=== PATIENT | female | born 1955 | race Caucasian/White ===

== ENCOUNTER 2017-07-26 05:17 | Inpatient (IN) ==
[2017-07-26 05:47] VITALS: BMI 24.0
[2017-07-26] MEDS ORDERED: ACETAMINOPHEN 500 MG TABLET PO ONE (06:00)
[2017-07-26] MEDS ORDERED: TRANEXAMIC ACID 1,000 MG in NS 100 ML IV ONE ×2 (06:00→07:00)
[2017-07-26] MEDS ORDERED: LIDOCAINE 1% (10mg/ml) 2mL INJ PF SDV ID ONE (06:00)
[2017-07-26] MEDS ORDERED: NOZIN NASAL SWAB NAS ONE ×2 (06:00→10:11)
[2017-07-26] MEDS ORDERED: ONDANSETRON 4 MG/2 ML INJECTION IVP ONE (06:00)
[2017-07-26] MEDS ORDERED: FAMOTIDINE PB 20 MG/50 ML BAG IV ONE (06:00)
[2017-07-26] MEDS ORDERED: METOCLOPRAMIDE 10mg/2ml INJECTION IVP ONE (06:00)
[2017-07-26] MEDS: LR 1,000 ML IV SCH ×2 (06:19→07:50)
[2017-07-26] MEDS ORDERED: CEFAZOLIN 1 G INJECTION IVP ONE (06:20)
--- NOTE | 2017-07-26 06:47 | Anesthesia Preoperative Report ---
Anesthesia Preoperative Record - Date and Time Date: 07/26/17 Preoperative Diagnosis: Lt TKA M17.12 Proposed Procedure: left total knee NPO Since Date: 07/25/17 NPO Since Time: 23:00 Allergies/Adverse Reactions: Allergies Allergy/AdvReac Type Severity Reaction Status Date / Time Sulfa (Sulfonamide Allergy Mild Rash Verified 07/26/17 05:57 Antibiotics) - Vital Signs Vital Signs: Temperature 98.4 F 07/26/17 05:47 Pulse Rate 80 07/26/17 06:04 Respiratory Rate 15 07/26/17 05:47 Blood Pressure 132/73 07/26/17 05:47 Pulse Oximetry 95 07/26/17 05:47 Height and Weight: Height 1.66 m Weight 66.6 kg Body Mass Index 24.0 - Medications Inpatient Medications: Current Medications Lactated Ringer's (Lactated Ringers) 1,000 mls @ 50 mls/hr IV .Q20H KIRA Last Admin: 07/26/17 06:19 Dose: 50 mls/hr Epinephrine HCl 0.25 mg/Bupivacaine HCl 30 ml/Morphine Sulfate 15 mg/Ketorolac Tromethamine 60 mg/Sodium Chloride 65.25 mls @ 0 mls/hr OPSITE INTRAOP ONE; Per Protocol PRN Reason: Protocol Stop: 07/26/17 08:01 Tranexamic Acid 1,000 mg/ (Sodium Chloride) 110 mls @ 660 mls/hr IV INTRAOP ONE Stop: 07/26/17 07:09 Sodium Chloride (Iv Flush) 10 - 80 ml IV PRN PRN PRN Reason: [place] Home Medications: Home Medications Medication Instructions Recorded Confirmed Type Tramadol HCl 100 mg PO Q8HPRN PRN #0 03/25/14 07/26/17 History Methocarbamol 750 mg PO DAILY PRN #0 11/01/15 07/26/17 History Simvastatin 80 mg PO HS #0 11/01/15 07/26/17 History Biotin 800 mcg PO DAILY 05/26/17 07/26/17 History Calcium Carbonate/Vitamin D3 1 tab PO BID 05/26/17 07/26/17 History [Calcium 500+D Tablet Chew] Duloxetine [Cymbalta] 60 mg PO BID 05/26/17 07/26/17 History Levothyroxine Sodium [Levoxyl] 100 mcg PO DAILY 05/26/17 07/26/17 History Metformin [Glucophage] 1,000 mg PO BID 05/26/17 07/26/17 History Nicotine Polacrilex [Nicotine 4 mg BC PRN PRN 05/26/17 07/26/17 History Lozenge] Triamterene/Hctz 37.5/25 Tab 1 tab PO NOON 05/26/17 07/26/17 History [MAXZIDE-25 eqv] Valsartan [Diovan] 1 tab PO DAILY 05/26/17 07/26/17 History Vitamin B Complex [Balanced B-100] 1 each PO DAILY 05/26/17 07/26/17 History Is Patient on Beta Sosa?: No - Medical History Respiratory: Reports: Bronchitis DENIES: Asthma Cardiovascular: Reports: Hypertension, High Cholesterol DENIES: Angina Gastrointestional: Reports: Other (hx of elevated liver enzymes) Neuro/Musculoskeletal: Reports: HX.MS.OSAR, Back Problems (scoliosis;thoracic spondylosis and ddd), Cerebrovascular Accident (AT AGE 40 STILL HAS MILD LEFT- SIDED WEAKNESS), Depression, Muscle Weakness, Other (fibromyalgia; multiple fractures, ) Renal/Endocrine: Reports: Diabetes Mellitus Type 2 (avg bs at home 120-200), Thyroid Disease Other History: Reports: Other (anemia - idiopathic) - Surgical History HEENT Surgeries: Reports: Oral Surgery (wisdom tooth extraction), Tonsillectomy GI Surgery/Treatments: Reports: Colonoscopy, EGD Musculoskeletal Surgery/Tx: Reports: Orthopedic Surgery (ORIF Lt proximal humerus), Other (ORIF wrist; ORIF Lt ankle; remove RIGHT ankle hardware; bunionectomy) Hx Family Anesthesia Reaction: No History of Motion Sickness: No - Social History Smoking Status: Former smoker Hx Chewing Tobacco Use: No Second Hand Exposure: No Substance Use Type: does not use Alcohol Intake: current Alcohol Intake Frequency: a few times a week - Pertinent Findings Laboratory: CBC and BMP 07/26/17 05:53 07/26/17 05:53 BMP 07/26/17 05:53 Sodium 142 Potassium 4.2 Chloride 101 Carbon Dioxide 30 BUN 15.0 Creatinine 0.5 L Glucose 162 H Calcium 9.7 EKG: Sinus Rhythm - Physical Exam Respiratory Exam: Present: lungs clear, bilateral breath sounds equal Cardiovascular Exam: Present: regular rate and rhythm, no murmur - Airway Assessment Mallampati Score: II TMD: 3 Fingerbreadths Neck Extension: fair Teeth: upper dentures Overall Assessment: may be difficult intubation - ASA ASA Score: 3 - Plan Regional/Trunk Block: Spinal - Discussion Discussion: Discussed risks/options/alternatives of anesthesia and questions answered. Patient consents. Nursing pain assessment noted. Attestation Statement: Prior to the delivery of any anesthetic medication, I examined the patient, developed the plan, obtained the patient's consent and discussed the risk and benefits of the procedure with the patient/guardian.
[2017-07-26] MEDS ORDERED: FentaNYL 100 MCG/2 ML INJECTION ONE (06:58)
[2017-07-26] MEDS ORDERED: PROPOFOL 20 ML ONE ×2 (06:59→07:25)
[2017-07-26] MEDS ORDERED: KETAMINE 500 MG/10 ML INJECTION ONE (06:59)
[2017-07-26] MEDS ORDERED: MIDAZOLAM 2mg/2ml INJECTION ONE (06:59)
[2017-07-26] MEDS ORDERED: VANCOMYCIN 1,000 MG INJECTION ONE (07:02)
[2017-07-26] MEDS ORDERED: EPHEDRINE 50mg/ml INJECTION ONE (07:43)
[2017-07-26] MEDS ORDERED: ROPIVACAINE 0.5% (5mg/ml) 30ml INJ ONE (07:45)
[2017-07-26] MEDS ORDERED: EPINEPHrine PF 0.25 MG, BUPIVACAINE 0.25% PF 30 ML, MORPHINE SULFATE 15 MG, KETOROLAC I... OPSITE ONE (08:00)
[2017-07-26] MEDS ORDERED: HYDROMORPHONE 2 MG/ML INJECTION IVP PRN (08:28)
--- NOTE | 2017-07-26 08:53 | Operative Note ---
- Procedure Preoperative Diagnosis: Left knee primary degenerative joint disease Postoperative Diagnosis: Same as preoperative diagnosis. Surgeon: Robert Azul MD Wood Casket Maker: Jose A Carrington Complications: None. Anesthesia: Spinal. Estimated Blood Loss: See Anesthesia Record. Fluids: Please see Anesthesia Record. Description of Procedure: Mrs. Melara and her left knee were identified and marked in the preoperative holding area. She was brought back to the operating suite after a saphenous nerve block was placed in the preoperative holding area. Spinal anesthetic was administered and she was placed supine on the operating table. The left lower extremity was prepped and draped in my normal sterile fashion. Timeout was performed. The [employer] ([employer]) robot was used during the surgery. She had a correctable valgus deformity without flexion contracture. A standard anterior midline incision followed by medial parapatellar arthrotomy was performed. Anterior fat pad and meniscus were removed. The patella was resurfaced to a size 29. Tibial and femoral arrays were placed both within the original incision. Checkpoints were then placed both in the femur and the tibia. The bone was then registered with the [employer] ([employer]) robot. Osteophytes were removed and gaps were captured both 90 and 0 with correction. She easily correct with manipulation. Because she hyperextended by 3 I balanced with 17 mm gaps in extension and 18 mm gaps in flexion. The [employer] ([employer]) robotic arm was then used to assist with the bone cuts. Posterior osteophytes and remaining meniscus were removed. Trial components were placed. We used a 3 femur and a 3 tibia with a 11 mm spacer. She tracked well and was well balanced throughout range of motion. She went from 18 of valgus to 0. The leg was exsanguinated and the tourniquet inflated to 250 mmHg. The bone was prepared for cementing and components were cemented into place and allowed to cure in extension. The tourniquet was let down and hemostasis obtained with electrocautery. The knee was ranged one more time to ensure good stability, balance and patellar tracking. 1 g of TXA was allowed to sit in the wound for 5 minutes and then suctioned out. 1 g of vancomycin powder was then placed into the knee joint. The capsulotomy was then closed with #1 Vicryl. I then left my acquisitions assistant to close the subcutaneous tissue with 2-0 Vicryl. Running 4-0 Monocryl will be used in the subcuticular layer. Dermabond will be used on the skin followed by sterile dressing. After drapes are removed patient will be taken to recovery room under the care of anesthesia.
--- NOTE | 2017-07-26 09:02 | Anesthesia Postoperative Note ---
- Status Vital Signs: Temperature 98.4 F 07/26/17 05:47 Pulse Rate 80 07/26/17 06:04 Respiratory Rate 15 07/26/17 05:47 Blood Pressure 132/73 07/26/17 05:47 Pulse Oximetry 95 07/26/17 05:47 Complications During Recover: None Apparent - Follow-Up Instructions Instructions: Per Surgeon
--- NOTE | 2017-07-26 09:54 | Anesthesia Procedure Note ---
Peripheral Nerve Blockade - Procedure Physician: Kevin Azul MD Date: 07/26/17 Surgical Procedure: Left total knee Discussion: Discussed risks/options/alternatives of anesthesia and questions answered. Patient consents. Nursing pain assessment noted. Block Start: 09:47 Block Stop: 09:50 Blocked Employed: Adductor Canal Indication: Post-Operative Pain Approach: Left Side Confirmed Position: Supine Patient: Consent, Risks/Benefits Discussed, Informed, Post Block Act. Discussed IV Sedation: No Initial Vital Signs: Temperature 98.4 F 07/26/17 05:47 Temperature Source Oral 07/26/17 05:47 Pulse Rate 89 07/26/17 05:47 Respiratory Rate 15 07/26/17 05:47 Blood Pressure 132/73 07/26/17 05:47 Blood Pressure Mean 92 07/26/17 05:47 Blood Pressure Position Sitting 07/26/17 05:47 Pulse Oximetry 95 07/26/17 05:47 Oxygen Delivery Method 07/26/17 05:47 Post Vital Signs: Temperature 98.9 F 07/26/17 09:23 Pulse Rate 92 07/26/17 09:40 Respiratory Rate 19 07/26/17 09:40 Blood Pressure 96/58 07/26/17 09:40 Pulse Oximetry 98 07/26/17 09:40 Initial Pain Pain Score: 0 Post Block Pain Score: 0 Prep: Chlorhexadine/ETOH Ultrasound Used?: Yes - Injectate Ropivacaine (%): 0.5 Ropivacaine (mL): 15 Was Epi 1:200,000 Used?: No Injection: Injection made incrementally with constant monitoring and aspiration every ml
--- NOTE | 2017-07-26 10:02 | XRay Report ---
Indication: postoperative image PROCEDURE: XR knee LT 2V: Encounter: Initial Comparison: December 12, 2015 Findings: Postoperative changes of left total knee replacement are seen. There is expected postoperative subcutaneous gas. No evidence of hardware failure or acute fracture. No retained radiopaque surgical instruments or sponges. Overlying material causing artifact. Impression: New left total knee prosthesis without evidence of immediate complication. .
[2017-07-26] MEDS ORDERED: ONDANSETRON 4 MG/2 ML INJECTION IVP PRN (10:11)
[2017-07-26] MEDS ORDERED: DiphenhydrAMINE 25 MG CAPSULE PO PRN (10:11)
[2017-07-26] MEDS ORDERED: DiphenhydrAMINE 50 MG/ML INJECTION IVP PRN (10:11)
[2017-07-26] MEDS ORDERED: LORazepam 1 MG TABLET PO PRN (10:11)
[2017-07-26] MEDS ORDERED: METHOCARBAMOL 750 MG TABLET PO PRN (10:11)
[2017-07-26] MEDS ORDERED: FALL RISK - PHARMACY CONSULT MC ONE (10:31)
[2017-07-26] MEDS: NS 1,000 ML IV SCH ×2 (10:32→23:30)
[2017-07-26] MEDS: ACETAMINOPHEN 325 MG TABLET PO SCH ×4 (11:43→22:05)
[2017-07-26] MEDS: LEVOTHYROXINE 100 MCG TABLET PO SCH (11:44)
[2017-07-26] MEDS: Valsartan 160 MG TABLET PO SCH (12:03)
[2017-07-26] MEDS: POLYETHYL GLYCOL 3350 17gm PACKET PO SCH (12:03)
[2017-07-26] MEDS: TRIAMTERENE/HCTZ 37.5 MG-25 MG TABLET PO SCH (12:03)
[2017-07-26] MEDS: DULOXETINE 60 MG CAPSULE PO SCH ×2 (12:03→22:06)
[2017-07-26] MEDS: DOCUSATE SODIUM 100 MG CAPSULE PO SCH ×2 (12:04→22:06)
--- NOTE | 2017-07-26 12:17 | Anesthesia Postoperative Note ---
- Date and Time Date: 07/26/17 Time: 11:46 - Status Patient Participated in Evaluation: Patient Participated in Person Vital Signs: Temperature 98.4 F 07/26/17 10:10 Pulse Rate 99 07/26/17 10:55 Respiratory Rate 16 07/26/17 10:10 Blood Pressure 120/67 07/26/17 10:55 Pulse Oximetry 98 07/26/17 10:55 Respiratory Function: Airway Patent Cardiovascular Function: Regular Pulse EKG: Sinus Rhythm Mental Status: Alert and Oriented Pain Intensity: 22 Hydration: IV Infusing Complications During Recover: None Apparent - Follow-Up Instructions Instructions: Per Surgeon
[2017-07-26] MEDS: TRAMADOL 50 MG TABLET PO PRN ×2 (12:42→14:52)
[2017-07-26] MEDS: NOZIN NASAL SWAB NAS SCH ×2 (14:07→22:06)
[2017-07-26] MEDS: INSULIN ASPART 100unit/ml INJECTION SQ PRN ×2 (14:52→21:01)
[2017-07-26] MEDS: CEFAZOLIN 2 G in NS 100 ML IV SCH ×2 (15:03→23:30)
[2017-07-26] MEDS ORDERED: SALINE FLUSH 10ml SYRINGE IV PRN (20:44)
[2017-07-26] MEDS ORDERED: SENNOSIDES 8.6 MG TABLET PO SCH (21:00)
[2017-07-26] MEDS ORDERED: SIMVASTATIN 40 MG TABLET PO SCH (21:00)
[2017-07-26] MEDS: ASPIRIN *EC* 81 MG TABLET PO SCH (22:05)
[2017-07-26] MEDS: Oxycodone *IR* 5 MG TABLET PO PRN (23:38)
[2017-07-26 23:45] VITALS: O2SAT 96
[2017-07-27] MEDS: Oxycodone *IR* 5 MG TABLET PO PRN ×5 (03:58→13:36)
[2017-07-27] MEDS: NOZIN NASAL SWAB NAS SCH ×2 (06:22→13:37)
[2017-07-27] MEDS: INSULIN ASPART 100unit/ml INJECTION SQ PRN ×2 (06:33→10:43)
[2017-07-27] MEDS ORDERED: SENNOSIDES 8.6 MG TABLET PO PRN (07:17)
[2017-07-27] MEDS ORDERED: METFORMIN 1,000 MG TABLET PO SCH (08:00)
--- NOTE | 2017-07-27 08:43 | Orthopedic Progress Note ---
Date: Subjective/Severity of Illness: Ana is alert and knew me. Pain is well controlled. She has been mobile with good tolerance. Hgb dropped from 11.2 to 8.2 and was confirmed on a second draw. Denies feeling SOA, lightheaded or dizzy. Her HR has slowly been increasing. BP elevated, I&O not unusual. Denies abdominal pain. She was worked up for anemia earlier, including a colonoscopy, and was no source was identified. Orthopedic Objective PO Vital signs: Temperature 98.6 F 07/27/17 08:16 Pulse Rate 100 07/27/17 08:16 Respiratory Rate 20 07/27/17 08:16 Blood Pressure 125/69 07/27/17 08:16 Pulse Oximetry 96 07/27/17 08:16 Height and Weight: Height 5 ft 5.5 in Weight 174 lb 9.698 oz Body Mass Index 24.0 - Constitutional General Appearance: Present: alert, orientated x3, cooperative, no acute distress - Respiratory Exam Present: non-labored - Cardiovascular Exam Present: Regular Rate/Rhythm, pedal pulses intact Capillary Refill: < 2-3 Seconds - Abdominal Exam Present: soft. Absent: tenderness, distended - Extremities Exam Extremities: Present: pulses intact, normal capillary refill. Absent: calf tenderness - Knee Exam Knee Exam: Present: other (Minimal swelling in the joint and soft tissues.) - Surgical Site Incision: Mepilex dressing intact, no drainage - Integumentary Exam Present: pink, warm, dry - Neurological Exam Present: no deficits - Psychiatric Exam Present: alert, normal affect - Labs Result Diagrams: 07/27/17 07:31 07/27/17 04:33 Abnormal lab results 07/27/17 07/27/17 07/27/17 Range/Units 04:33 04:33 07:31 Hgb 8.2 L D 8.2 L (12-16) GM/DL Hct 26.2 L D (36-46) % Creatinine 0.4 L (0.7-1.2) MG/DL BUN/Creatinine Ratio 35 H (6-26) RATIO Glucose 173 H (65-110) MG/DL H & H 07/26/17 07/27/17 07/27/17 Range/Units 05:53 04:33 07:31 Hgb 11.2 L 8.2 L D 8.2 L (12-16) GM/DL Hct 35.6 L 26.2 L D (36-46) % Orthopedic Assessment and Plan (1) Primary osteoarthritis of left knee Status: Acute Assessment and Plan: L TKA 07/26/17 Mobilize with PT / OT. ASA, SCDs and early mobilization for DVT coverage. CM for discharge planning and needs. I will recheck a Hgb at noon to monitor hgb trends. - Anticoagulation Therapy Anticoagulation: ASA 81 mg PO BID x6 weeks Hospital Course Summary Disclaimer: The visit summary below is not to be considered part of the above Progress Note.
[2017-07-27] MEDS: POLYETHYL GLYCOL 3350 17gm PACKET PO SCH (10:01)
[2017-07-27] MEDS: Valsartan 160 MG TABLET PO SCH (10:02)
[2017-07-27] MEDS: ACETAMINOPHEN 325 MG TABLET PO SCH ×2 (10:04→13:36)
[2017-07-27] MEDS: DOCUSATE SODIUM 100 MG CAPSULE PO SCH (10:04)
[2017-07-27] MEDS: LEVOTHYROXINE 100 MCG TABLET PO SCH (10:06)
[2017-07-27] MEDS: ASPIRIN *EC* 81 MG TABLET PO SCH (10:06)
[2017-07-27] MEDS: DULOXETINE 60 MG CAPSULE PO SCH (10:06)
[2017-07-27 12:11] VITALS: BP 128/76; PULSE 98; RESP 18
[2017-07-27 12:16] VITALS: TEMP 98.7
--- NOTE | 2017-07-27 13:11 | Discharge Summary ---
Orthopedic Discharge Info Date of admission: 07/26/17 05:17 Primary care physician: Praneeth Cabrera MD Attending Physician: Kevin Azul MD Consults: 07/26/17 05:37 Consult to Anesthesiology [CONS] Routine Reason For Exam: Preoperative Assessment 07/26/17 10:11 Case Management Consult [CONS] Routine Reason For Exam: Discharge Planning DME-Walker [CONS] Routine Height: 5 ft 5.5 in Weight: 146 lb 13.246 oz Comment: change dressing in 2 weeks Total Joint Outpatient Therapy [CONS] Routine Comment: change dressing in 2 weeks - Discharge Diagnosis (1) Primary osteoarthritis of left knee Status: Acute - Procedures Procedures: Procedures Left Total knee replacement - Laboratory Result Diagrams: 07/27/17 11:56 07/27/17 04:33 Laboratory: Abnormal lab results 07/27/17 07/27/17 07/27/17 Range/Units 04:33 04:33 07:31 Hgb 8.2 L D 8.2 L (12-16) GM/DL Hct 26.2 L D (36-46) % Creatinine 0.4 L (0.7-1.2) MG/DL BUN/Creatinine Ratio 35 H (6-26) RATIO Glucose 173 H (65-110) MG/DL 07/27/17 Range/Units 11:56 Hgb 8.6 L (12-16) GM/DL Hct (36-46) % Creatinine (0.7-1.2) MG/DL BUN/Creatinine Ratio (6-26) RATIO Glucose (65-110) MG/DL H & H 07/26/17 07/27/17 07/27/17 Range/Units 05:53 04:33 07:31 Hgb 11.2 L 8.2 L D 8.2 L (12-16) GM/DL Hct 35.6 L 26.2 L D (36-46) % 07/27/17 Range/Units 11:56 Hgb 8.6 L (12-16) GM/DL Hct (36-46) % Orthopedic Discharge HPI - HPI Comments This patient was admitted for elective surgical tx of end stage degenerative joint disease that failed to respond to conservative treatment. Further details of this is found in the admission H&P. Orthopedic Hospital Course Hospital course: 07/27/17 13:09 After appropriate preoperative clearance and signing of operative consent, the patient was given IV antibiotics, according to orthopedic protocol. The patient was taken to the operating room and underwent elective joint arthroplasty. Following surgery, antibiotics were discontinued less than 24 hours according to joint protocol. Appropriate anticoagulants were initiated and SCDs added for DVT prevention. The dressing was clean, dry, and intact. Pain control was obtained via multimodal approach. Bowel motivation addressed with scheduled and PRN medications. Early mobilization was initiated through PT services. Discharge arrangements made by a collaborative effort between the patient and Case Management. Hgb was noted post op day one at 8.2. She was asymptomatic and vitals were stable throughout. Hgb was repeated at 8.6. She had a recent EGD and colonoscopy via PCP which showed no bleed. Plan on discharge was to repeat labs and followup with PCP in 1 week. Follow-up is scheduled in 2-3 weeks. Discharge instructions given by orthopedic providers and nursing staff at discharge. Discharge condition was good. Ongoing care required?: No - Postoperative Anemia patient received IVF, labs monitored daily, no intervention required, HGB drop- acceptable Discharge Plan - Med Rec/Dispo Referrals/Follow Up: Praneeth Cabrera MD [Family Provider] - 1 Week (1 week for follow up on anemia. (She was asymptomatic througout hospital stay).) Truv Instructions: [facility] [place] Postop Instructions Additional Instructions: THERAPY ON JULY 29 AT 1:00 PM AT [facility]. TAKE FOLDER OF COMPLETED PAPERWORK WITH YOU TO APPOINTMENT. Please draw a CBC on 08/01/17 and take/fax results to Dr. Cabrera's office to be available for a 1 week follow up appointment. Prescriptions: New Acetaminophen [Tylenol] 650 mg PO QID tablet Aspirin *EC* [Ecotrin] 81 mg PO BID #84 tab PEG 3350 17gm PACKET [Miralax] 17 gm PO DAILY packet Oxycodone *IR* [Roxicodone *Ir*] 5 - 15 mg PO Q6H PRN #60 tab PRN Reason: Pain Continue Methocarbamol 750 mg PO DAILY PRN #0 PRN Reason: Muscle Spasm Calcium Carbonate/Vitamin D3 [Calcium 500+D Tablet Chew] 1 tab PO BID Biotin 800 mcg PO DAILY Vitamin B Complex [Balanced B-100] 1 each PO DAILY Metformin [Glucophage] 1,000 mg PO BID Duloxetine [Cymbalta] 60 mg PO BID Levothyroxine Sodium [Levoxyl] 100 mcg PO DAILY Triamterene/Hctz 37.5/25 Tab [MAXZIDE-25 eqv] 1 tab PO NOON Nicotine Polacrilex [Nicotine Lozenge] 4 mg BC PRN PRN PRN Reason: Prn Orders Simvastatin 80 mg PO HS #0 Valsartan [Diovan] 1 tab PO DAILY Discontinued Tramadol HCl 100 mg PO Q8HPRN PRN #0 PRN Reason: PAIN - Disposition 01 Discharged Home, Self-Care - Dismissal Complete Discharge Instructions are:: Complete
[2017-07-27] MEDS: TRIAMTERENE/HCTZ 37.5 MG-25 MG TABLET PO SCH (13:36)
--- NOTE | 2017-07-27 13:51 | Orthopedic Progress Note ---
Date: Subjective/Severity of Illness: Ana is alert and oriented. Pain is well controlled. She has been mobile with good tolerance. Repeat Hgb is 8.6. Denies feeling SOA, lightheaded or dizzy. Her HR has been stable, only one reading about 100. BP WNL this afternoon. I&O not unusual. Denies abdominal pain. She was worked up for anemia earlier, including a colonoscopy, and was no source was identified. Orthopedic Objective PO Vital signs: Temperature 98.7 F 07/27/17 12:08 Pulse Rate 98 07/27/17 12:08 Respiratory Rate 18 07/27/17 12:08 Blood Pressure 128/76 07/27/17 12:08 Pulse Oximetry 96 07/27/17 12:08 Height and Weight: Height 5 ft 5.5 in Weight 174 lb 9.698 oz Body Mass Index 24.0 - Constitutional General Appearance: Present: alert, orientated x3, cooperative, no acute distress - Respiratory Exam Present: non-labored - Cardiovascular Exam Present: Regular Rate/Rhythm, pedal pulses intact - Abdominal Exam Present: soft. Absent: tenderness, distended - Extremities Exam Extremities: Present: pulses intact, normal capillary refill. Absent: calf tenderness - Knee Exam Knee Exam: Present: other (Minimal swelling in the joint and soft tissues.) - Surgical Site Incision: Mepilex dressing intact, no drainage - Integumentary Exam Present: pink, warm, dry - Neurological Exam Present: no deficits - Psychiatric Exam Present: alert, normal affect - Labs Result Diagrams: 07/27/17 11:56 07/27/17 04:33 Abnormal lab results 07/27/17 07/27/17 07/27/17 Range/Units 04:33 04:33 07:31 Hgb 8.2 L D 8.2 L (12-16) GM/DL Hct 26.2 L D (36-46) % Creatinine 0.4 L (0.7-1.2) MG/DL BUN/Creatinine Ratio 35 H (6-26) RATIO Glucose 173 H (65-110) MG/DL 07/27/17 Range/Units 11:56 Hgb 8.6 L (12-16) GM/DL Hct (36-46) % Creatinine (0.7-1.2) MG/DL BUN/Creatinine Ratio (6-26) RATIO Glucose (65-110) MG/DL H & H 07/26/17 07/27/17 07/27/17 Range/Units 05:53 04:33 07:31 Hgb 11.2 L 8.2 L D 8.2 L (12-16) GM/DL Hct 35.6 L 26.2 L D (36-46) % 07/27/17 Range/Units 11:56 Hgb 8.6 L (12-16) GM/DL Hct (36-46) % Orthopedic Assessment and Plan (1) Primary osteoarthritis of left knee Status: Acute Assessment and Plan: L TKA 07/26/17 Mobilize with PT / OT. ASA, SCDs and early mobilization for DVT coverage. Discharge to home with a repeat CBC 08/01/17 and a 1 week follow up with Dr. Cabrera. - Anticoagulation Therapy Anticoagulation: ASA 81 mg PO BID x6 weeks Hospital Course Summary Disclaimer: The visit summary below is not to be considered part of the above Progress Note.
[2017-07-28] MEDS ORDERED: BISACODYL 10 MG SUPPOSITORY RECTALLY SCH (20:00)
== END 2017-07-27 14:15 | disposition home or self-care (01) | DRG 470 ==
LOC: SRG 05:17
PROVIDERS: ADMIT Orthopaedic Surgery; ATTEND Orthopaedic Surgery